=== PATIENT | male | born 1995 | race Caucasian/White ===

== ENCOUNTER 2021-09-13 10:27 | Outpatient (CLI) | payer BC, SELFPAY ==
--- NOTE | ~2021-09-13 | XR_ITS ---
MODIFIED ESOPHAGRAM HISTORY: Dysphagia. TECHNIQUE: Modified barium esophagram was performed on 09/13/2021. I administered fluoroscopy and perfo rmed the exam with speech pathologist. Patient was seated for lateral fluoroscopic imaging for inges tion of thin liquids, pudding, solids and quantified amounts, followed by thin liquids in uncontrolle d amounts. Patient also swallowed a barium pill. This was recorded on tape. A single fluoroscopic spo t image was also recorded. The DAP for this procedure was 2.35 Gycm2. The amount of fluoroscopy time used during this procedure was 1.5 minutes. FINDINGS: Oral stage: Adequate function. Pharyngeal stage: Adequate function. Cervical/esophageal stage: Adequate function. The barium pill became lodged at the distal most esophagus despite multiple subsequent swallows of wa ter and thin barium. IMPRESSION: 1. Patient tolerated regular consistency oral feedings in the upright position. Please correlate wit h speech pathologist findings and specific feeding recommendations. 2. The barium pill became lodged at the distalmost esophagus. Unclear whether this results from a fix ed stricture or due to achalasia or esophageal spasm. Could consider endoscopy for further evaluation . Reviewed, dictated and finalized at location A. IMPRESSION: 1. Patient tolerated regular consistency oral feedings in the upright position. Please correlate with speech pathologist findings and specific feeding recomm endations. 2. The barium pill became lodged at the distalmost esophagus. Unclear whether t his results from a fixed stricture or due to achalasia or esophageal spasm. Cou ld consider endoscopy for further evaluation.
--- NOTE | 2021-09-13 16:34 | STOPEVAL ---
MODIFIED BARIUM SWALLOW STUDY Thank you for referring Madhu Fragoso to [facility].? I agree with and certify that the following plan of care is medically necessary. Referring Physician Date Attending Provider: Trice Martínez, RICKY Therapy Assessment Status Assessment Status Assessment Status Evaluation Pain Assessment Timing of Pain Assessment Timing of Pain Assessment Assessment Self Report Self Report Pain Level 0 Pain Score Pain Score 0: Self Report Modified Barium Swallow Evaluation Consistency Barium Pill Other Amount With water and then thin liquid barium both uncontrolled per cup. Oral Preparatory Symptoms Within Functional Limits Oral Phase Symptoms Within Functional Limits Pharyngeal Phase Symptoms Within Functional Limits Severity of Vallecular Residue None - 0% No Residue Severity of Pyriform Sinus Residue None - 0% No Residue 8 Point Laryngeal Penetration-Aspiration Material Does Not Enter Airway Scale Cervical/Esophageal Phase Comments Pill was observed to sit at the gastroesophageal sphincter /juncture and additional water and thin liquid contrast medium passed through into the stomach but did not clear the pill. See Radiology Report. Solid Consistency 5 mL Method of Presentation Spoon Oral Preparatory Symptoms Within Functional Limits Oral Phase Symptoms Within Functional Limits Pharyngeal Phase Symptoms Within Functional Limits Severity of Vallecular Residue None - 0% No Residue Severity of Pyriform Sinus Residue None - 0% No Residue 8 Point Laryngeal Penetration-Aspiration Material Does Not Enter Airway Scale Cervical/Esophageal Symptoms Within Functional Limits Mixed Consistency 5 mL Method of Presentation Spoon Oral Preparatory Symptoms Within Functional Limits Oral Phase Symptoms Within Functional Limits Pharyngeal Phase Symptoms Within Functional Limits Severity of Vallecular Residue None - 0% No Residue Severity of Pyriform Sinus Residue None - 0% No Residue 8 Point Laryngeal Penetration-Aspiration Material Does Not Enter Airway Scale Cervical/Esophageal Symptoms Within Functional Limits Pureed Consistency 5 mL Method of Presentation Spoon Oral Preparatory Symptoms Within Functional Limits Oral Phase Symptoms Within Functional Limits Pharyngeal Phase Symptoms Within Functional Limits Severity of Vallecular Residue None - 0% No Residue Severity of Pyriform Sinus Residue None - 0% No Residue 8 Point Laryngeal Penetration-Aspiration
== END 2021-09-13 10:28 | disposition home or self-care (01) ==
PROVIDERS: PCP Internal Medicine; Visit Provider Nurse Practitioner
DX: R13.10 Dysphagia, unspecified (principal)
CPT/HCPCS: 92611

== ENCOUNTER 2022-12-06 02:46 | Day surgery (SDC) | payer BC, SELFPAY ==
[2022-12-02 12:04] VITALS: BMI 25.2
[2022-12-06 09:51] VITALS: BP 126/82; PULSE 90; RESP 16; TEMP 36.7; O2SAT 100; BMI 24.3
[2022-12-06] MEDS: LACTATED RINGERS 1,000 ML 150 ML IV CONT (10:01)
--- NOTE | 2022-12-06 10:12 | PM.HPGS ---
History of Present Illness History of Present Illness Consent: Risks, benefits, and alternatives have been discussed and questions answered. Patient agrees to proceed with procedure. Chief complaint: dysphagia Narrative: Madhu Fragoso is a 27 year old male with 2 years of dysphagia to solids, never had egd Review of Systems Constitutional: Constitutional: Denies headache(s) and Denies weakness Eyes: Eyes: Denies blurry vision ENT: Reports Normal hearing present, Denies headache(s) and Denies neck pain Cardiovascular: Cardiovascular: Denies chest pain and Denies dyspnea Respiratory: Respiratory: Denies dyspnea Gastrointestinal: Gastrointestinal: Reports no additional gastrointestinal complaints Genitourinary: Genitourinary: Denies dysuria Musculoskeletal: Musculoskeletal: Denies neck pain Integumentary/Breasts: Skin/Breast: Denies dry skin Neurologic: Reports Normal hearing present, Denies headache(s) and Denies weakness Psychiatric: Psychiatric: Denies anxiety Endocrine: Endocrine: Denies change in body appearance Hematologic/Lymphatic: Hematologic/Lymphatic: Denies easy bleeding Allergic/Immunologic: Allergic/Immunologic: Denies urticaria PMFSH Past Medical History Medical History Hx of fracture of arm Family History Family History Mother Patient's mother is in good health Father Patient's father is in good health Sibling Patient's brother is in good health Social History Social History Smoking status: Never smoker Alcohol intake: current Alcohol use details: occasionally Substance use: never Substance use type: does not use Lack of Transportation: No Lack of Food: Never True Current Housing: I Have Housing Concerned About Future Housing: No Difficulty Paying Gas/Electric Bills: No Difficulty Paying for Meds: No Currently Unemployed: No Education: Bachelor's Degree Difficulty w/ Childcare or Family Care: No Living arrangements: with family Spiritual care concerns: No Meds Home Medications and Allergies Home Medications Medication Instructions Recorded Confirmed Type albuterol sulfate 90 mcg/actuation 1 inh inhalation Q4H PRN Shortness 12/02/22 12/06/22 History aerosol inhaler (Ventolin HFA) Of Breath Or Wheezing buspirone 7.5 mg tablet 7.5 mg PO HS 12/02/22 12/06/22 History Allergies Allergy/AdvReac Type Severity Reaction Status Date / Time Penicillins Allergy Intermediate Hives Verified 12/06/22 09:50 Vital Signs Vital Signs - 24 hr 12/06/22 09:51 Temperature 98.0 F Pulse Rate 90 Respiratory Rate 16 Blood Pressure 126/82 Pulse Oximetry 100 Oxygen Delivery Room Air Exam Const: General: comfortable and no acute distress HENMT: Face/Nose/Sinus: Normal nares present Eyes: General: appearance normal, both eyes and all related structures Neck: Neck: no JVD Resp: Auscultation: clear to auscultation bilaterally Cardio: Rate: regular rate Rhythm: regular rhythm GI: Inspection: non-distended GI Palp: Yes Soft to palpation Skin: General skin exam: normal color Neuro: General: gait normal Speech: normal speech Extrem: General: normal to inspection Psych: Mental Status: mental status grossly normal Assessment and Plan Assessment and plan (1) Dysphagia: Code(s): R13.10 - Dysphagia, unspecified Status: Acute Assessment and Plan: egd, will assess if needs dilatation
--- NOTE | 2022-12-06 10:27 | P.PNAN_ITS ---
Anes - Initial Pre Proc Eval Procedure: Operation Date: 12/06/22 10:45 Proposed Procedures p Esophagogastroduodenoscopy - Jordon Moreno MD Date/Time: 12/06/22 10:27 Surgeon: Jordon Moreno MD Pre Op Diagnosis: dysphagia Patient Data Age: 27 Gender: M Height: 1.8 m Weight: 79.3 kg Last Vital Signs Temp 98.0 F 12/06/22 09:51 Pulse 90 12/06/22 09:51 Resp 16 12/06/22 09:51 BP 126/82 12/06/22 09:51 Pulse Ox 100 12/06/22 09:51 O2 Del Method Room Air 12/06/22 09:51 Allergies Allergy/AdvReac Type Severity Reaction Status Date / Time Penicillins Allergy Intermediate Hives Verified 12/06/22 09:50 Home Medications Medication Instructions Recorded Confirmed Type albuterol sulfate 90 mcg/actuation 1 inh inhalation Q4H PRN Shortness 12/02/22 12/06/22 History aerosol inhaler (Ventolin HFA) Of Breath Or Wheezing buspirone 7.5 mg tablet 7.5 mg PO HS 12/02/22 12/06/22 History omeprazole 40 mg capsule,delayed 40 mg PO .daily 1 month #30 caps 12/06/22 12/06/22 Rx release Patient hx anesthesia problems: none Family hx anesthesia problems: none Results Review: All pre-operative results and documents have been reviewed as part of the pre- operative evaluation. [facility] Past Medical History Medical History Hx of fracture of arm Family History Family History Mother Patient's mother is in good health Father Patient's father is in good health Sibling Patient's brother is in good health Social History Social History Smoking status: Never smoker Alcohol intake: current Alcohol use details: occasionally Substance use: never Substance use type: does not use Lack of Transportation: No Lack of Food: Never True Current Housing: I Have Housing Concerned About Future Housing: No Difficulty Paying Gas/Electric Bills: No Difficulty Paying for Meds: No Currently Unemployed: No Education: Bachelor's Degree Difficulty w/ Childcare or Family Care: No Living arrangements: with family Spiritual care concerns: No Anes - Eval Final PreProcedure Day of Procedure 12/06/22 10:27 Patient weight: normal Heart: regular rate and rhythm Lungs: clear to auscultation Airway: Mallampati scale class II Neurological: alert and oriented Last oral intake: >/= 8 hours ASA classification: II Emergent: no Anesthetic plan: proceed Anesthesia type and monitoring: general GIVS and standard monitoring Results Review: All pre-operative results and documents have been reviewed as part of the pre- operative evaluation. Informed Consent: The patient's anesthetic plan and its attendant risks and benefits were discussed with the patient/family/POA. Questions were solicited and answers provided to the satisfaction of the patient/family/POA.
[2022-12-06 10:33] VITALS: BP 108/56; PULSE 64; RESP 20; O2SAT 99
[2022-12-06 10:43] VITALS: BP 110/61; PULSE 56; RESP 20; O2SAT 100
[2022-12-06 10:53] VITALS: BP 117/71; PULSE 54; RESP 20; O2SAT 99
== END 2022-12-06 11:04 | disposition home or self-care (01) ==
PROVIDERS: PCP Family Medicine; Visit Provider Internal Medicine Gastroenterology
PROC: 0DJ08ZZ Inspection of Upper Intestinal Tract, Via Natural or Artificial Opening Endoscopic (ICD-10-PCS; CPT 43235; principal; 2022-12-06 10:45)
DX: K22.2 Esophageal obstruction (principal); K20.0 Eosinophilic esophagitis; Z79.51 Long term (current) use of inhaled steroids
CPT/HCPCS: 43249; 43239; 88305; C1726; J2001; J2704; J7120